=== PATIENT | female | born 1990 | race Caucasian/White ===

== ENCOUNTER 2018-07-03 14:46 | Outpatient (CLI) | payer SELFPAY ==
[2018-07-03 16:30] LABS: THYROID STIMULATING HORMONE 2.09 uIU/mL (0.34-5.60)
[2018-07-03 16:58] LABS: FOLLICLE STIMULATING HORMONE 6.52 mIU/mL
[2018-07-03 16:59] LABS: LUTEINIZING HORMONE 18.26 mIU/mL
[2018-07-03 17:51] LABS: PROLACTIN 7.76 ng/mL
== END 2018-07-03 14:47 | disposition home or self-care (01) ==
LOC: LAB 14:46
PROVIDERS: ATTEND Registered Nurse
DX: N92.6 Irregular menstruation, unspecified (principal)
CPT/HCPCS: 36415; 81599; 82670; 83001; 83002; 84146; 84402; 84403; 84443

== ENCOUNTER 2018-07-07 07:53 | Outpatient (CLI) | payer SELFPAY | END 2018-07-07 07:54 | disposition home or self-care (01) | LOC: LAB 07:53 | PROVIDERS: ATTEND Registered Nurse | DX: N92.6 Irregular menstruation, unspecified (principal) | CPT/HCPCS: 36415; 82951 ==

== ENCOUNTER 2018-07-24 14:42 | Outpatient (CLI) | payer SELFPAY ==
[2018-07-24 14:53] LABS: BASOPHILS # (AUTO) 0.1 10^3/uL (0.0-0.1); BASOPHILS % (AUTO) 0.7 %; EOSINOPHILS % (AUTO) 0.5 %; HGB - HEMOGLOBIN 13.8 g/dL (12.0-16.0); LYMPHOCYTES # (AUTO) 2.3 10^3/uL (1.5-3.5); LYMPHOCYTES % (AUTO) 30.1 %; MEAN CORPUSCULAR HGB CONC 34.1 g/dL (32.0-36.0); MEAN CORPUSCULAR VOLUME 88.1 fL (81.0-99.0); MEAN PLATELET VOLUME 8.6 fL (7.9-10.8); MONOCYTES # (AUTO) 0.6 10^3/uL (0.0-1.0); MONOCYTES % (AUTO) 7.2 %; NEUTROPHILS # (AUTO) 4.7 10^3/uL (1.5-6.6); NEUTROPHILS % (AUTO) 61.5 %; PLT - PLATELET COUNT 248 10^3/uL (130-450); RED BLOOD COUNT 4.59 10^6/uL (4.20-5.40); RED CELL DISTRIBUTION WIDTH 12.9 % (12.0-15.0); WHITE BLOOD COUNT 7.7 x10^3/uL (4.8-10.8)
[2018-07-24 15:29] LABS: FERRITIN 18.7 ng/mL (11.0-306.8)
== END 2018-07-24 14:43 | disposition home or self-care (01) ==
LOC: LAB 14:42
PROVIDERS: ATTEND Registered Nurse
DX: R53.83 Other fatigue (principal); R73.03 Prediabetes
CPT/HCPCS: 36415; 82306; 82607; 82728; 85025

== ENCOUNTER 2018-08-03 07:20 | Outpatient (CLI) | payer SELFPAY ==
--- NOTE | 2018-08-03 09:03 | Ultrasound Report ---
Reason: PELVIC PAIN,ACUTE Procedure Date: 08/03/2018 Accession Number: [id number] / [id number] Procedure: US - Pelvic w/Transvaginal CPT Code: FULL RESULT: EXAM: PELVIC ULTRASOUND EXAM DATE: 08/03/2018 08:23 AM. CLINICAL HISTORY: Pelvic pain, acute and cyclical in nature. History of polycystic ovarian syndrome. COMPARISON: None. TECHNIQUE: Realtime transabdominal pelvic scan performed to identify the uterus and adnexa and as an overview of other pelvic structures, followed by transvaginal scan to provide greater detail of the uterus and adnexa, with static image documentation. FINDINGS: Uterus: 9.3 x 4.4 x 5.9 cm, volume 126 cc. Anteverted position. Normal overall size and echotexture. Masses: None. Endometrium: 5 mm. Normal. Cervix: Unremarkable. Right Ovary: 3.1 x 2.1 x 3.5 cm, volume 12 cc. Numerous follicles are noted with otherwise preserved echotexture and blood flow. Left Ovary: 3.7 x 2.2 x 4.1 cm, volume 18 cc. Numerous follicles are noted with otherwise preserved echotexture and blood flow. Free Fluid: None. Other: None. IMPRESSION: Prominent number of bilateral ovarian follicles, compatible with provided history of polycystic ovarian syndrome. RADIA
== END 2018-08-03 07:21 | disposition home or self-care (01) ==
LOC: DI 07:20
PROVIDERS: ATTEND Registered Nurse
DX: R10.2 Pelvic and perineal pain (principal)
CPT/HCPCS: 76830; 76856

== ENCOUNTER 2018-08-03 08:20 | Outpatient (CLI) | payer SELFPAY ==
[2018-08-03 09:21] LABS: CHOL/HDL RATIO 2.4 (<4.4); CHOLESTEROL 139 mg/dL; HDL CHOLESTEROL 59 mg/dL; LDL CHOLESTEROL,CALCULATED 60 mg/dL; VLDL CHOLESTEROL 20 mg/dL
== END 2018-08-03 08:21 | disposition home or self-care (01) ==
LOC: LAB 08:20
PROVIDERS: ATTEND Registered Nurse
DX: R73.09 Other abnormal glucose (principal)
CPT/HCPCS: 36415; 80061; 83721

== ENCOUNTER 2019-10-22 10:42 | Emergency (ER) | payer SELFPAY ==
[2019-10-22 11:02] VITALS: BP 148/76
[2019-10-22 11:38] LABS: BASOPHILS % (AUTO) 0.2 %; EOSINOPHILS % (AUTO) 0.1 %; HGB - HEMOGLOBIN 13.7 g/dL (12.0-16.0); LYMPHOCYTES # (AUTO) 1.3 10^3/uL (1.5-3.5); LYMPHOCYTES % (AUTO) 14.2 %; MEAN CORPUSCULAR HEMOGLOBIN 30.5 pg (27.0-31.0); MEAN CORPUSCULAR HGB CONC 34.4 g/dL (32.0-36.0); MEAN CORPUSCULAR VOLUME 88.6 fL (81.0-99.0); MEAN PLATELET VOLUME 10.4 fL (7.9-10.8); MONOCYTES # (AUTO) 0.4 10^3/uL (0.0-1.0); MONOCYTES % (AUTO) 4.1 %; NEUTROPHILS # (AUTO) 7.1 10^3/uL (1.5-6.6); NEUTROPHILS % (AUTO) 81.1 %; PLT - PLATELET COUNT 262 10^3/uL (130-450); RED BLOOD COUNT 4.49 10^6/uL (4.20-5.40); RED CELL DISTRIBUTION WIDTH 12.5 % (12.0-15.0); WHITE BLOOD COUNT 8.8 x10^3/uL (4.8-10.8)
[2019-10-22] MEDS ORDERED: LIDOCAINE 2%-EPI 1:100000 20 ML MDV SUBQ STA (11:44)
[2019-10-22 11:51] LABS: ALBUMIN 4.5 g/dL (3.2-5.5); ALBUMIN/GLOBULIN RATIO 1.4 (1.0-2.2); BILIRUBIN,TOTAL 1.1 mg/dL (0.2-1.0); CALCIUM 9.2 mg/dL (8.5-10.3); CREATININE 0.8 mg/dL (0.4-1.0); TOTAL PROTEIN 7.8 g/dL (6.7-8.2)
--- NOTE | 2019-10-22 12:08 | ED Physician Documentation ---
History of Present Illness - Stated complaint Stated Complaint: ABD PX - Chief complaint Chief Complaint: Abd Pain - History obtained from History obtained from: Patient - History of Present Illness Timing: Today Pain level max: 0 Pain level now: 0 - Additonal information Additional information: 29-year-old female states that yesterday she started having pain near her C- section incision site, was approximately 6 years ago. Today she noticed redness and swelling. Worse with palpation, nothing makes it better. No fevers. 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 - Present Medications Home Medications: Ambulatory Orders Medication Instructions Recorded Confirmed Cephalexin [Keflex] 500 mg PO Q6H #28 capsule 10/22/19 Sulfamethox/Trimeth 800/160 1 each PO BID #14 tablet 10/22/19 [Bactrim Ds 800/160] metFORMIN [Glucophage] 500 mg PO TID 10/22/19 10/22/19 - Allergies Allergies/Adverse Reactions: Allergies Allergy/AdvReac Type Severity Reaction Status Date / Time No Known Drug Allergies Allergy Verified 10/22/19 10:59 - Living Situation Living Situation: reports: With family Living Arrangement: reports: At home - Social History Smoking Status: Never smoker PD ED PE NORMAL - Vitals Vital signs reviewed: Yes - General General: Alert and oriented X 3, No acute distress - HEENT HEENT: Moist mucous membranes - Neck Neck: Supple, no meningeal sign - Abdomen Abdomen: Other (small abscess to the L edge of the scar. 1x1cm. ) - Derm Derm: Warm and dry - Neuro Neuro: Alert and oriented X 3 Results - Vitals Vitals: Vital Signs - 24 hr 10/22/19 10:59 Temperature 37.3 C Heart Rate 91 Respiratory 18 Rate Blood Pressure 148/76 H O2 Saturation 99 Oxygen O2 Source Room air - Labs Labs: Microbiology 10/22/19 12:00 Wound Culture - Preliminary Abscess Laboratory Tests 10/22/19 10/22/19 11:30 11:30 WBC 8.8 RBC 4.49 Hgb 13.7 Hct 39.8 MCV 88.6 MCH 30.5 MCHC 34.4 RDW 12.5 Plt Count 262 MPV 10.4 Neut # (Auto) 7.1 H Lymph # (Auto) 1.3 L [place] # (Auto) 0.4 Eos # (Auto) 0.0 Baso # (Auto) 0.0 Absolute Nucleated RBC 0.00 Nucleated RBC % 0.0 Sodium 138 Potassium 3.8 Chloride 104 Carbon Dioxide 24 Anion Gap 10.0 BUN 10 Creatinine 0.8 Estimated GFR (MDRD) 84 L Glucose 111 H Calcium 9.2 Total Bilirubin 1.1 H AST 19 ALT 19 Alkaline Phosphatase 57 Total Protein 7.8 Albumin 4.5 Globulin 3.3 Albumin/Globulin Ratio 1.4 Lipase 40 Procedures - Abscess I&D (location) abdomen Preparation: Confirmed with ultrasound, Chlorhexadine, Lidocaine 2 %, With epi Incision: Incised with scalpel, Purulent drainage, Culture obtained Other: Pt tolerated well, Dressing applied, Antibiotic prescribed PD MEDICAL DECISION MAKING - ED course Complexity details: considered differential, d/w patient ED course: Patient with a small abscess underneath her scar. This was incised and drained. Tolerated well. Wound culture obtained. Will place on antibiotics. Patient counseled regarding signs and symptoms for which I believe and urgent re-evaluation would be necessary. Patient with good understanding of and agreement to plan and is comfortable going home at this time This document was made in part using voice recognition software. While efforts are made to proofread this document, sound alike and grammatical errors may occur. Patient is not , breast-feeding or trying to become . Departure - Departure Disposition: 01 Home, Self Care Clinical Impression: Abscess Condition: Good Instructions: ED Abscess IandD Follow-Up: Your,doctor in 3 days for wound check [Other] Prescriptions: Cephalexin [Keflex] 500 mg PO Q6H #28 capsule Sulfamethox/Trimeth 800/160 [Bactrim Ds 800/160] 1 each PO BID #14 tablet Comments: Take all antibiotics until gone. Return if you worsen. Follow-up with your doctor in 3 days for wound check.
== END 2019-10-22 12:40 | disposition home or self-care (01) ==
LOC: ED 10:42
DX: L02.211 Cutaneous abscess of abdominal wall (principal)
CPT/HCPCS: 10060; 36415; 80053; 83690; 85025; 87070; 87205

== ENCOUNTER 2020-07-28 11:03 | Emergency (ER) | payer SELFPAY ==
[2020-07-28 11:35] LABS: BASOPHILS % (AUTO) 0.6 %; EOSINOPHILS % (AUTO) 0.5 %; HCT - HEMATOCRIT 41.4 % (37.0-47.0); HGB - HEMOGLOBIN 13.7 g/dL (12.0-16.0); LYMPHOCYTES # (AUTO) 2.3 10^3/uL (1.5-3.5); LYMPHOCYTES % (AUTO) 34.7 %; MEAN CORPUSCULAR HGB CONC 33.1 g/dL (32.0-36.0); MEAN CORPUSCULAR VOLUME 90.6 fL (81.0-99.0); MEAN PLATELET VOLUME 10.9 fL (7.9-10.8); MONOCYTES # (AUTO) 0.4 10^3/uL (0.0-1.0); MONOCYTES % (AUTO) 5.6 %; NEUTROPHILS # (AUTO) 3.9 10^3/uL (1.5-6.6); NEUTROPHILS % (AUTO) 58.3 %; PLT - PLATELET COUNT 269 10^3/uL (130-450); RED BLOOD COUNT 4.57 10^6/uL (4.20-5.40); RED CELL DISTRIBUTION WIDTH 12.6 % (12.0-15.0); WHITE BLOOD COUNT 6.6 x10^3/uL (4.8-10.8)
--- NOTE | 2020-07-28 11:36 | ED Physician Documentation ---
PD HPI ABD PAIN - Stated complaint Stated Complaint: BACK PX - Chief complaint Chief Complaint: Back Pain - History obtained from History obtained from: Patient - History of Present Illness Timing - onset: Enter time (1000), Today Timing - duration: Hours Timing - details: Abrupt onset, Still present Quality: Aching, Sharp, Pain Location: RUQ Radiation: Right flank Improved by: Other (nothing) Worsened by: Other (nothing) Associated symptoms: Nausea. No: Vomiting, Diarrhea, Constipation, Dysuria Similar symptoms before: Has not had sx before Recently seen: Not recently seen - Additional information Additional information: Previously well 30-year-old female has developed right flank pain beginning about [birth year]18[birth year]1930 this morning and the pain was severe radiating around to the front and down into her groin. She has not had these symptoms previously. She does not have increase in her pain with movement or palpation. Review of Systems Constitutional: denies: Fever Throat: denies: Sore throat Cardiac: denies: Chest pain / pressure Respiratory: denies: Cough GI: reports: Abdominal Pain, Nausea. denies: Abdominal Swelling, Vomiting, Constipation, Diarrhea : denies: Dysuria, Frequency Skin: denies: Rash Musculoskeletal: reports: Back pain. 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 - Present Medications Home Medications: Ambulatory Orders Medication Instructions Recorded Confirmed metFORMIN [Glucophage] 500 mg PO TID 10/22/19 07/28/20 HYDROcod/ACETAM 5/325 [Eastsound 5/325] 1 - 2 tablet PO Q6H PRN #15 tablet 07/28/20 Spironolactone [Aldactone] 1 tab PO DAILY 07/28/20 07/28/20 - Allergies Allergies/Adverse Reactions: Allergies Allergy/AdvReac Type Severity Reaction Status Date / Time No Known Drug Allergies Allergy Verified 07/28/20 11:49 - Social History Does the pt smoke?: No Smoking Status: Never smoker PD ED PE NORMAL - Vitals Vital signs reviewed: Yes (normal ) - General General: Alert and oriented X 3, Well developed/nourished, Other (uncomfortable appearing female writhing in pain ) - HEENT HEENT: Atraumatic, PERRL - Neck Neck: Supple, no meningeal sign - Cardiac Cardiac: RRR, No murmur - Respiratory Respiratory: No respiratory distress, Clear bilaterally - Abdomen Abdomen: Normal bowel sounds, Soft, Non tender, Non distended, No organomegaly - Back Back: No CVA TTP, No spinal TTP - Derm Derm: Normal color, Warm and dry, No rash - Extremities Extremities: No deformity, No edema - Neuro Neuro: Alert and oriented X 3, bpm architect 2-12 intact, No motor deficit, No sensory deficit, Normal speech Eye Opening: Spontaneous Motor: Obeys Commands Verbal: Oriented GCS Score: 15 - Psych Psych: Normal mood, Normal affect Results - Vitals Vitals: Vital Signs - 24 hr 07/28/20 11:07 Temperature 36.4 C L Heart Rate 100 Respiratory 20 Rate Blood Pressure 129/74 O2 Saturation 100 Oxygen O2 Source Room air - Labs Labs: Laboratory Tests 07/28/20 07/28/20 07/28/20 11:20 11:25 11:25 WBC 6.6 RBC 4.57 Hgb 13.7 Hct 41.4 MCV 90.6 MCH 30.0 MCHC 33.1 RDW 12.6 Plt Count 269 MPV 10.9 H Neut # (Auto) 3.9 Lymph # (Auto) 2.3 [place] # (Auto) 0.4 Eos # (Auto) 0.0 Baso # (Auto) 0.0 Absolute Nucleated RBC 0.00 Nucleated RBC % 0.0 Sodium 137 Potassium 3.1 L Chloride 97 L Carbon Dioxide 19 L Anion Gap 21.0 H BUN 14 Creatinine 1.0 Estimated GFR (MDRD) 65 L Glucose 111 H Calcium 10.1 Total Bilirubin 1.5 H AST 22 ALT 16 Alkaline Phosphatase 46 Total Protein 8.1 Albumin 4.8 Globulin 3.3 Albumin/Globulin Ratio 1.5 Lipase 37 Urine Color YELLOW Urine Clarity CLEAR Urine pH 6.0 Ur Specific [place] 1.020 Urine Protein TRACE Urine Glucose (UA) NEGATIVE Urine Ketones NEGATIVE Urine Occult Blood LARGE H Urine Nitrite NEGATIVE Urine Bilirubin NEGATIVE Urine Urobilinogen 0.2 (NORMAL) Ur Leukocyte Esterase NEGATIVE Urine RBC TNTC H Urine WBC 0-3 Ur Squamous Epith Cells FEW Squamous Urine Bacteria Few Urine Yeast PRESENT Ur Microscopic Review INDICATED Urine Culture Comments NOT INDICATED Procedures - Bedside sono Bedside sono by EMP: With use of bedside ultrasound the right kidney is imaged it is sonographically nontender and there is evidence of hydronephrosis. PD MEDICAL DECISION MAKING - ED course Complexity details: reviewed old records, reviewed results, re-evaluated patient, considered differential, d/w patient ED course: 30-year-old female with acute right flank pain radiating down into her groin has a 3 mm stone at the UVJ. She has improvement in her pain with use of Toradol and requests something more prior to leaving the emergency department and she is administered Dilaudid as well. She is given instructions on the natural history of kidney stone she does have 3 smaller stones in the left kidney and one smaller stone in the right. Departure - Departure Disposition: 01 Home, Self Care Clinical Impression: Ureterolithiasis Condition: Stable Instructions: ED Stone Renal W Colic Follow-Up: MUNA KOENIG DO [Primary Care Provider] - Prescriptions: HYDROcod/ACETAM 5/325 [Eastsound 5/325] 1 - 2 tablet PO Q6H PRN #15 tablet PRN Reason: Pain
[2020-07-28 11:38] LABS: BILIRUBIN,URINE NEGATIVE (NEGATIVE); GLUCOSE, URINE (UA) NEGATIVE (NEGATIVE); KETONES,URINE (UA) NEGATIVE (NEGATIVE); LEUKOCYTE ESTERASE, URINE NEGATIVE (NEGATIVE); NITRITE,URINE NEGATIVE (NEGATIVE); OCCULT BLOOD,URINE LARGE (NEGATIVE); PROTEIN,URINE TRACE mg/dL (NEGATIVE); UROBILINOGEN,URINE 0.2 (NORMAL) E.U./dL (NORMAL)
[2020-07-28 11:39] LABS: CLARITY,URINE CLEAR (CLEAR)
[2020-07-28] MEDS ORDERED: SODIUM CHLORIDE 0.9% 1,000 ML IV STA (11:39)
[2020-07-28] MEDS ORDERED: KETOROLAC 30 MG/ML VIAL IVP STA (11:39)
[2020-07-28 11:46] LABS: RBC,URINE TNTC /HPF (0-5); SQUAMOUS EPITHELIAL CELL,UR FEW Squamous (<= Few); WBC,URINE 0-3 /HPF (0-5)
[2020-07-28 11:47] LABS: BACTERIA,URINE Few /HPF (None Seen); YEAST,URINE PRESENT
[2020-07-28 11:47] LABS: ALBUMIN 4.8 g/dL (3.2-5.5); ALBUMIN/GLOBULIN RATIO 1.5 (1.0-2.2); BILIRUBIN,TOTAL 1.5 mg/dL (0.2-1.0); CALCIUM 10.1 mg/dL (8.5-10.3); POTASSIUM 3.1 mmol/L (3.5-5.0); TOTAL PROTEIN 8.1 g/dL (6.7-8.2)
--- NOTE | 2020-07-28 12:11 | CT Report ---
PROCEDURE: Abdomen/Pelvis WO INDICATIONS: R flank pain TECHNIQUE: Noncontrast 5 mm thick sections acquired from the diaphragms to the symphysis. 5 mm coronal and sagi ttal reformats were then performed. For radiation dose reduction, the following was used: automated exposure control, adjustment of mA and/or kV according to patient size. COMPARISON: None. FINDINGS: Image quality: Excellent. ABDOMEN: Lung bases: Lung bases are clear. Heart size is normal. Solid organs: Liver is mildly enlarged with steatosis. The spleen is normal in size. Gallbladder is unremarkable. Pancreas is normal in contours. No adrenal nodules. Kidneys are normal in size. The re is a 20 calcification the superior pole of the left kidney. There are 2 punctate calcifications la rgest measuring approximately 2 mm in the inferior left renal pole. No hydronephrosis. No right renal calcifications are identified. There is a 3 mm calcification at the right ureterovesicular calculus with mild hydronephrosis and hydroureter. Peritoneum and bowel: Unenhanced bowel loops demonstrate normal wall thickness and caliber. No free fluid or air. Nodes and vessels: No retroperitoneal or mesenteric adenopathy by size criteria. Aorta and inferior vena cava are normal in caliber. Miscellaneous: No ventral hernias. There is an 11 mm focus of decreased attenuation within the left anterior subcutaneous fat of the pelvis. PELVIS: Genitourinary: Bladder wall thickness is normal. Miscellaneous: No inguinal hernias or adenopathy. Bones: No suspicious bony lesions. No vertebral body compression fractures. IMPRESSION: 1. 3 mm right ureterovesicular calculus with mild right hydronephrosis and hydroureter. 2. Low-attenuation focus within the subcutaneous fat of the anterior pelvis as above. This could repr esent a small focus of infection or inflammation. Additional etiology can include sebaceous cyst. Cli nical correlation is recommended. 3. Nonobstructing left renal calculi. Reviewed by: Roselia Wu MD on 07/28/2020 12:10 PM PDT Approved by: Roselia Wu MD on 07/28/2020 12:10 PM PDT Station ID: [id number]
[2020-07-28] MEDS ORDERED: HYDROmorphone 1 MG/ML CARPUJECT IVP STA (13:05)
[2020-07-28] MEDS ORDERED: ONDANSETRON 4 MG/2 ML VIAL IVP STA (13:05)
[2020-07-28 13:17] LABS: HCG UR QUAL NEGATIVE
[2020-07-28 13:18] VITALS: BP 113/80
== END 2020-07-28 13:25 | disposition home or self-care (01) ==
LOC: ED 11:03
DX: N13.2 Hydronephrosis with renal and ureteral calculous obstruction (principal)
CPT/HCPCS: 36415; 80053; 81001; 81003; 81025; 83690; 85025; 87086; 96374; 99284

== ENCOUNTER 2022-07-20 19:42 | Outpatient (CLI) | payer OTHER | END 2022-07-20 19:43 | disposition critical access hospital (66) | LOC: EMS 19:42 | DX: R07.81 Pleurodynia (principal); M54.9 Dorsalgia, unspecified; R11.10 Vomiting, unspecified | CPT/HCPCS: A0425; A0427 ==

== ENCOUNTER 2022-07-20 20:00 | Emergency (ER) | payer OTHER ==
[2022-07-20 20:43] LABS: BASOPHILS % (AUTO) 0.3 %; EOSINOPHILS # (AUTO) 0.1 10^3/uL (0.0-0.7); EOSINOPHILS % (AUTO) 0.6 %; HCT - HEMATOCRIT 36.3 % (37.0-47.0); HGB - HEMOGLOBIN 12.1 g/dL (12.0-16.0); LYMPHOCYTES # (AUTO) 2.1 10^3/uL (1.5-3.5); LYMPHOCYTES % (AUTO) 21.1 %; MEAN CORPUSCULAR HEMOGLOBIN 29.7 pg (27.0-31.0); MEAN CORPUSCULAR HGB CONC 33.3 g/dL (32.0-36.0); MEAN CORPUSCULAR VOLUME 89.2 fL (81.0-99.0); MEAN PLATELET VOLUME 10.6 fL (7.9-10.8); MONOCYTES # (AUTO) 0.6 10^3/uL (0.0-1.0); NEUTROPHILS # (AUTO) 7.1 10^3/uL (1.5-6.6); NEUTROPHILS % (AUTO) 71.7 %; PLT - PLATELET COUNT 239 10^3/uL (130-450); RED BLOOD COUNT 4.07 10^6/uL (4.20-5.40); RED CELL DISTRIBUTION WIDTH 12.8 % (12.0-15.0); WHITE BLOOD COUNT 9.8 x10^3/uL (4.8-10.8)
[2022-07-20 20:52] LABS: ALBUMIN 3.5 g/dL (3.2-5.5); ALBUMIN/GLOBULIN RATIO 1.1 (1.0-2.2); BILIRUBIN,TOTAL 0.7 mg/dL (0.2-1.0); CALCIUM 8.5 mg/dL (8.5-10.3); CREATININE 0.7 mg/dL (0.4-1.0); POTASSIUM 3.4 mmol/L (3.5-5.0); TOTAL PROTEIN 6.6 g/dL (6.7-8.2)
--- NOTE | 2022-07-20 21:04 | ED Physician Documentation ---
PD HPI ABD PAIN - Stated complaint Stated Complaint: ABD PX - Chief complaint Chief Complaint: Back Pain - History obtained from History obtained from: Patient - Additional information Additional information: Patient is a 32-year-old female with a history of type 2 diabetes presenting for evaluation of chest pain that occurred approximately 1 hour prior to arrival as she was eating dinner which consisted of salmon and broccoli. Patient states that she felt a squeezing sensation from both sides of her ribs that was making her feel short of breath. She had associated nausea and few episodes of emesis that consisted of her food. She said she was feeling Lightheadedness if she was going to faint and thus called 911.EMS did give Zofran and fentanyl prior to arrival.After that she says her symptoms have improved. She denies having any current chest pain, difficulty breathing, abdominal pain, Diarrhea, dysuria, concerns for .She denies a history of similar symptoms. She denies feeling as if food was stuck in her esophagus. Review of Systems Constitutional: denies: Fever Nose: denies: Congestion Cardiac: reports: Chest pain / pressure Respiratory: denies: Dyspnea GI: reports: Nausea, Vomiting. 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 - Present Medications Home Medications: Ambulatory Orders Medication Instructions Recorded Confirmed metFORMIN [Glucophage] 500 mg PO TID 10/22/19 07/20/22 Ondansetron Odt [Zofran] 4 mg TL Q6H PRN #10 tablet 07/20/22 - Allergies Allergies/Adverse Reactions: Allergies Allergy/AdvReac Type Severity Reaction Status Date / Time No Known Drug Allergies Allergy Verified 07/20/22 20:11 - Social History Does the pt smoke?: No Smoking Status: Never smoker PD ED PE NORMAL - General General: Alert and oriented X 3, No acute distress, Well developed/nourished - HEENT HEENT: Atraumatic, Moist mucous membranes, Pharynx benign - Neck Neck: Supple, no meningeal sign - Cardiac Cardiac: RRR, Other (No chest wall tenderness, crepitus or deformity) - Respiratory Respiratory: No respiratory distress, Clear bilaterally - Abdomen Abdomen: Normal bowel sounds, Soft, Non tender, Non distended, Other - Derm Derm: Warm and dry - Extremities Extremities: No edema - Neuro Neuro: Normal speech Results - Vitals Vitals: Vital Signs - 24 hr 07/20/22 07/20/22 07/20/22 20:08 22:20 23:24 Temperature 37.1 C Heart Rate 87 70 62 Respiratory 17 11 L 13 Rate Blood Pressure 121/84 H 123/84 H 104/75 O2 Saturation 97 99 97 Oxygen O2 Source Room air - EKG (time done) 2028 EKG releavant findings:: EKG personally interpreted by author of this note. Relevant findings are: Rate 75, normal sinus rhythm, T wave flattening in multiple leads with no ST elevation or depression Rate: Rate (enter#) (75) Rhythm: NSR Rebuck: Normal Intervals: Normal [place] Ischemia: Non specific changes (T wave flattening in multiple leads). No: ST elevation c/w ischemia, ST depression Compare to prior EKG: Old EKG unavailable - Labs Labs: Laboratory Tests 07/20/22 07/20/22 07/20/22 20:34 20:34 21:25 WBC 9.8 RBC 4.07 L Hgb 12.1 Hct 36.3 L MCV 89.2 MCH 29.7 MCHC 33.3 RDW 12.8 Plt Count 239 MPV 10.6 Neut # (Auto) 7.1 H Lymph # (Auto) 2.1 [place] # (Auto) 0.6 Eos # (Auto) 0.1 Baso # (Auto) 0.0 Absolute Nucleated RBC 0.00 Nucleated RBC % 0.0 Sodium 140 Potassium 3.4 L Chloride 107 Carbon Dioxide 26 Anion Gap 7.0 BUN 8 Creatinine 0.7 Estimated GFR (MDRD) 96 Glucose 104 H Calcium 8.5 Total Bilirubin 0.7 AST 36 ALT 21 Alkaline Phosphatase 41 L Troponin I High Sens < 2.3 L Total Protein 6.6 L Albumin 3.5 Globulin 3.1 Albumin/Globulin Ratio 1.1 Lipase 125 H Urine Color Urine Clarity Urine pH Ur Specific [place] Urine Protein Urine Glucose (UA) Urine Ketones Urine Occult Blood Urine Nitrite Urine Bilirubin Urine Urobilinogen Ur Leukocyte Esterase Urine RBC Urine WBC Ur Squamous Epith Cells Urine Bacteria Ur Microscopic Review Urine Culture Comments Urine HCG, Qual 07/20/22 21:32 WBC RBC Hgb Hct MCV MCH MCHC RDW Plt Count MPV Neut # (Auto) Lymph # (Auto) [place] # (Auto) Eos # (Auto) Baso # (Auto) Absolute Nucleated RBC Nucleated RBC % Sodium Potassium Chloride Carbon Dioxide Anion Gap BUN Creatinine Estimated GFR (MDRD) Glucose Calcium Total Bilirubin AST ALT Alkaline Phosphatase Troponin I High Sens Total Protein Albumin Globulin Albumin/Globulin Ratio Lipase Urine Color YELLOW Urine Clarity HAZY Urine pH 8.5 H Ur Specific [place] 1.015 Urine Protein TRACE Urine Glucose (UA) NEGATIVE Urine Ketones NEGATIVE Urine Occult Blood SMALL H Urine Nitrite NEGATIVE Urine Bilirubin NEGATIVE Urine Urobilinogen 1 (NORMAL) Ur Leukocyte Esterase NEGATIVE Urine RBC 6-10 H Urine WBC 0-3 Ur Squamous Epith Cells RARE Squamous Urine Bacteria Rare Ur Microscopic Review INDICATED Urine Culture Comments NOT INDICATED Urine HCG, Qual NEGATIVE PD Medical Decision Making - ED course Complexity details: reviewed results, re-evaluated patient, d/w patient ED course: Patient is a 32-year-old female presenting for evaluation of chest and upper abdominal pain. Her EKG is reviewed without signs of acute ischemia. There are nonspecific changes in regards to T wave flattening. And there is no prior for comparison. Feel her symptoms are very atypical for ACS or dissection, particularly given her age and lack of risk factors. Labs were obtained and reviewed and significant for mild elevation in her lipase. She does have mild tenderness in the epigastric region so a CT of the abdomen pelvis was obtained which I reviewed.There is an irregularity noted in the left lower pelvis near the skin.On exam at this is in the area of the patient's scar and she has a firm area on the border of the scar. She states that this has been there for several years and she has had evaluation of this including an MRI. Does not appear to be an abscess.Patient is feeling better here with IV fluids, IV morphine and Zofran.I do not see signs of an acute surgical process. She is also low risk for cardiac issues and again I feel her story is atypical for a cardiac event.Patient is counseled on continued supportive care as well as need for close follow-up should Symptoms persist. She is also advised on strict return precautions for any worsening symptoms. Departure - Departure Disposition: 01 Home, Self Care Clinical Impression: Chest pain, Upper abdominal pain Condition: Stable Instructions: ED Abdominal Pain Female Non-Specific Abdominal Pain, ED Chest Pain Atypical Unkn Cause Prescriptions: Ondansetron Odt [Zofran] 4 mg TL Q6H PRN #10 tablet PRN Reason: Nausea / Vomiting Comments: Your work-up today does Has not revealed a source for your symptoms today. I would recommend continuing with a blandSoft diet tomorrow morning to make sure that you are able to tolerate it before resuming your regular food intake. I have sent prescription for antinausea medications to [facility] in [place]. We have also sent you home with a small amount of medications including some narcotic pain medications. I would recommend follow-up with your primary care doctor if you continue to have any abnormal symptoms. If you have any worsening such as increased pain, vomiting or any concerns please consider return to the emergency department. I am prescribing a short course of narcotic pain medication for you. These are potentially dangerous and addictive medications that should be used carefully. These medications may constipate you. Take an [id number] stool softener (docusate) twice daily with plenty of water while taking these medications. If you go 24 hours without a bowel movement, take [id number] miralax, per package instructions. Do not drink or drive while taking these medications. If you received narcotic or sedating medications while in the emergency department, do not drive for 24 hours. Store this medication in a safe, secure place and out of reach of children. It is a violation of federal law to give or sell this medication to another person or to use in a manner other than prescribed. The ED will not refill narcotic prescriptions, including prescriptions lost or stolen. To dispose of unwanted medications: 1. [facility] at [address] in [place] has a medication drop box. They accept prescription medications (in pill form) Friday through Friday 9:00 a.m. to 5:00 p.m. 2. The [facility] [employer] [facility] accepts prescription medications (in pill form only) for disposal year round. Call for more informat ion. 3. Contact the [facility] for the next [facility] sponsored prescription drug collection event. , x2769, or x5203; Note that many narcotic pain relievers also contain Tylenol/acetaminophen. Please ensure that your total dose of acetaminophen from all sources does not exceed 3 g (3000 mg) per day. Discharge Date/Time: 07/20/22 23:31
--- NOTE | 2022-07-20 21:17 | XRAY Report ---
PROCEDURE: Chest 1 View X-Ray INDICATIONS: CP TECHNIQUE: One view of the chest was acquired. COMPARISON: None. FINDINGS: Surgical changes and devices: None. Lungs and pleura: No pleural effusions or pneumothorax. Lungs are clear. Mediastinum: Mediastinal contours appear normal. Heart size is normal. Bones and chest wall: No suspicious bony lesions. Overlying soft tissues appear unremarkable. IMPRESSION: Normal for age, source of current chest pain symptoms is not seen. Reviewed by: Nahum Dominguez MD on 07/20/2022 9:15 PM PST Approved by: Nahum Dominguez MD on 07/20/2022 9:15 PM [facility] Station ID: [id number]
[2022-07-20] MEDS ORDERED: ONDANSETRON 4 MG/2 ML VIAL IVP STA (21:18)
[2022-07-20] MEDS ORDERED: MORPHINE 2 MG/ML CARPUJECT IVP STA (21:18)
[2022-07-20] MEDS ORDERED: iohexoL-300 100 ML VIAL ONE (21:25)
[2022-07-20 21:44] LABS: BILIRUBIN,URINE NEGATIVE (NEGATIVE); GLUCOSE, URINE (UA) NEGATIVE (NEGATIVE); KETONES,URINE (UA) NEGATIVE (NEGATIVE); LEUKOCYTE ESTERASE, URINE NEGATIVE (NEGATIVE); NITRITE,URINE NEGATIVE (NEGATIVE); OCCULT BLOOD,URINE SMALL (NEGATIVE); PH,URINE 8.5 PH (5.0-7.5); PROTEIN,URINE TRACE mg/dL (NEGATIVE); UROBILINOGEN,URINE 1 (NORMAL) E.U./dL (NORMAL)
[2022-07-20 21:47] LABS: CLARITY,URINE HAZY (CLEAR); HCG UR QUAL NEGATIVE
[2022-07-20 21:53] LABS: BACTERIA,URINE Rare /HPF (None Seen); SQUAMOUS EPITHELIAL CELL,UR RARE Squamous (<= Few); WBC,URINE 0-3 /HPF (0-5)
[2022-07-20] MEDS ORDERED: iohexoL-300 100 ML VIAL IVP ONE (21:58)
--- NOTE | 2022-07-20 22:41 | CT Report ---
PROCEDURE: ABDOMEN/PELVIS W INDICATIONS: epigastric abd pain CONTRAST: 100 MO OMNI 300 TECHNIQUE: After the administration of contrast, 5 mm thick sections acquired from the diaphragms to the symphys is. 5 mm thick coronal and sagittal reformats were acquired. For radiation dose reduction, the foll owing was used: automated exposure control, adjustment of mA and/or kV according to patient size. COMPARISON: 07/28/[address] FINDINGS: Image quality: Excellent. ABDOMEN: Lung bases: Lung bases are clear. Heart size is normal. Solid organs: Liver and spleen are normal in size and enhancement. Gallbladder appears normal Bili supriya system is non dilated. Pancreas enhances normally. No adrenal nodules. Kidneys demonstrate nor mal size and enhancement, without hydronephrosis. Peritoneum and bowel: Bowel loops demonstrate normal wall thickness and caliber. No free fluid or a ir. Nodes and vessels: No retroperitoneal or mesenteric adenopathy by size criteria. Aorta and inferior vena cava are normal in size. Miscellaneous: No ventral hernias. PELVIS: Genitourinary: Bladder wall thickness is normal. Miscellaneous: No inguinal hernias or adenopathy. At the left anterolateral pelvis region, within t he fatty soft tissues and at the skin surface there is an inflammatory process with what may be a sma ll rounded subcentimeter fluid collection almost at the skin surface seen on CT series 3 image 70. Th is may reflect a focal body wall focal Bones: No suspicious bony lesions. No vertebral body compression fractures. IMPRESSION: Within the abdomen and pelvis no visceral abnormality is seen. Please correlate clinical ly for the left lower pelvic anterolateral apparent inflammatory process with possible subcentimeter abscess almost at the skin surface seen on CT series 3 image 70. Reviewed by: Nahum Dominguez MD on 07/20/2022 10:39 PM PST Approved by: Nahum Dominguez MD on 07/20/2022 10:39 PM PST Station ID: [id number]
[2022-07-20] MEDS ORDERED: oxyCODONE/ACET 5/325 Prepack 4 PO STA (23:00)
[2022-07-20] MEDS ORDERED: ONDANSETRON ODT 4 MG Prepack 2 TL PRN (23:01)
[2022-07-20 23:25] VITALS: BP 104/75
== END 2022-07-20 23:31 | disposition home or self-care (01) ==
LOC: EDUNIT# → ED 20:00
DX: R07.9 Chest pain, unspecified (principal); R10.10 Upper abdominal pain, unspecified
CPT/HCPCS: 36415; 71045; 74177; 80053; 81001; 81025; 83690; 84484; 85025; 93005; 96374; 96375; 99284; Q9967; 81003; 87086